=== PATIENT | female | born 1985 | race Caucasian/White ===

== ENCOUNTER 2019-06-30 23:34 | Emergency (ER) | payer SELFPAY ==
[~2019-06-30] VITALS: Ht 152.4 cm; Wt 59.0 kg
[2019-07-01] MEDS ORDERED: KETOROLAC 30MG/ML VIAL IV STA (04:37)
[2019-07-01 04:56] LABS: BASOPHILS % 0.7 % (0.0-2.0); EOSINOPHILS % 5.6 % (0.0-5.0); HEMATOCRIT. 42.3 % (36.0-48.0); HEMOGLOBIN. 14.5 g/dL (12.0-16.0); MEAN CORPUSCULAR HEMOGLOBIN 29.2 pg (28.0-32.0); MEAN CORPUSCULAR VOLUME 85.3 fL (81.0-99.0); MEAN PLATELET VOLUME 10.3 fl (7.4-10.4); MONOCYTES % 6.1 % (2.0-8.0); NEUTROPHILS % 58.6 % (40.0-76.0); PLATELET 214 x1000/uL (130-400); RED BLOOD CELL COUNT 4.95 mill/uL (4.2-5.4); RED CELL DISTRIBUTION WIDTH 13.8 % (11.6-14.6)
[2019-07-01 05:04] LABS: CHLORIDE 102 mEq/L (98-107)
[2019-07-01 05:08] LABS: ETHANOL BLOOD < 10 mg/dL
[2019-07-01 05:48] LABS: CLARITY URINE CLEAR (CLEAR); COLOR URINE YELLOW (YELLOW); KETONES URINE NEGATIVE (NEGATIVE); LEUKOCYTE ESTERASE URINE TRACE (NEGATIVE); NITRITE URINE NEGATIVE (NEGATIVE); OCCULT BLOOD URINE NEGATIVE (NEGATIVE); PH URINE 6.5 (4.5-8.0); PROTEIN URINE NEGATIVE (NEGATIVE); SPECIFIC GRAVITY URINE 1.022 (1.005-1.030)
[2019-07-01 06:37] VITALS: BP 108/64
== END 2019-07-01 06:53 | disposition home or self-care (01) ==
LOC: ER 23:34
DX: M94.0 Chondrocostal junction syndrome [Tietze] (principal)
CPT/HCPCS: 36415; 71045; 80053; 80320; 81003; 81025; 83690; 83880; 84484; 85025; 93005; 99284; Z7610; G0480